=== PATIENT | male | born 1970 | race Caucasian/White ===

== ENCOUNTER 2024-02-10 19:07 | Emergency (ER) | payer BC, OTHER ==
[2024-02-10] MEDS ORDERED: Fluorescein Opthalmic Strip ONE (19:33)
[2024-02-10] MEDS ORDERED: Proparacaine 0.5% Opth 15 ML BOT ONE (19:34)
[2024-02-10] MEDS ORDERED: Erythromycin Base 0.5% Oint 1 GM TUBE ONE (19:57)
== END 2024-02-10 20:02 | disposition home or self-care (01) ==
LOC: CSHERS 19:07
DX: S05.02XA Injury of conjunctiva and corneal abrasion without foreign body, left eye, initial encounter (principal); I10 Essential (primary) hypertension; Z87.891 Personal history of nicotine dependence; Z79.899 Other long term (current) drug therapy; W45.8XXA Other foreign body or object entering through skin, initial encounter
CPT/HCPCS: 99283